=== PATIENT | female | born 1940 | race African-American/Black ===

== ENCOUNTER 2017-04-29 18:13 | Inpatient (IN) | payer OTHER ==
[~2017-04-29] VITALS: Ht 160 cm; Wt 67.9 kg
[2017-04-29] MEDS ORDERED: PLEASE ENTER ALLERGIES MC SCH ×2 (18:30)
[2017-04-29] MEDS ORDERED: SODIUM CHLORIDE FLUSH 10ML SYR IVF ONE (18:30)
[2017-04-29] MEDS ORDERED: OMEP10CA4 PO (18:34)
[2017-04-29] MEDS ORDERED: PROB500T22 PO (18:34)
[2017-04-29] MEDS ORDERED: AMLO10TA2 PO (18:34)
[2017-04-29] MEDS ORDERED: LEVO25TA4 PO (18:34)
[2017-04-29] MEDS ORDERED: LISI2.5T PO (18:34)
[2017-04-29] MEDS ORDERED: SIMV5TAB5 PO (18:34)
[2017-04-29] MEDS ORDERED: PRED-402 PO (18:34)
[2017-04-29] MEDS ORDERED: GABA300C10 PO (18:34)
[2017-04-29 18:50] LABS: ASPARTATE AMINO TRANSFERASE 23 U/L (15-37); BLOOD UREA NITROGEN 24 mg/dL (7-18)
[2017-04-29 18:55] LABS: IS PT STATUS REG ER OR PRE ER? YES
[2017-04-29] MEDS ORDERED: NITROGLYCERIN 0.4 MG/SPRAY SL PRN (20:30)
[2017-04-29] MEDS ORDERED: ACETAMINOPHEN 325 MG TABLET PO PRN (20:30)
[2017-04-29] MEDS ORDERED: ONDANSETRON 2MG/ML, 2ML IVPush PRN (20:30)
[2017-04-29] MEDS ORDERED: hydrALAzine 20 MG/ML, 1ML IVPush PRN (20:30)
[2017-04-29] MEDS ORDERED: ONDANSETRON ODT 4 MG PO PRN (20:30)
[2017-04-29] MEDS ORDERED: NITROGLYCERIN 0.4 MG BOTTLE (25 TABS) SL PRN ×2 (20:30)
[2017-04-29] MEDS ORDERED: LABETALOL 5MG/ML, 20ML IVPush PRN (20:30)
[2017-04-29] MEDS ORDERED: LORazepam 1MG TABLET PO PRN (20:30)
[2017-04-29] MEDS ORDERED: MAALOX/HYOSCYAMINE/LIDOCAINE 45 ML BOTTLE PO ONE (22:00)
[2017-04-29] MEDS: D5%-0.45NACL+KCL 20MEQ 1,000 ML IV SCH (23:44)
[2017-04-29] MEDS: HEPARIN 5,000 UNITS/ML, 1ML SQ SCH (23:45)
[2017-04-29 23:46] VITALS: BP 143/79
[2017-04-30 02:07] LABS: IS PT STATUS REG ER OR PRE ER? NO
[2017-04-30 02:11] VITALS: BP 132/64
[2017-04-30] MEDS ORDERED: LEVOTHYROXINE 100 MCG TABLET PO SCH (06:00)
[2017-04-30 06:44] LABS: ASPARTATE AMINO TRANSFERASE 20 U/L (15-37); BLOOD UREA NITROGEN 21 mg/dL (7-18)
[2017-04-30 06:48] LABS: IS PT STATUS REG ER OR PRE ER? NO
[2017-04-30 07:24] VITALS: BP 146/82
[2017-04-30] MEDS ORDERED: OMEPRAZOLE 20 MG CAPSULE.DR PO SCH (07:30)
[2017-04-30 08:30] LABS: DIFF TOTAL CELLS COUNTED 100 CELL DIFF
[2017-04-30 08:33] LABS: VERIFY COUNTS? YES
[2017-04-30] MEDS ORDERED: REGADENOSON 0.4 MG/5 ML SYRINGE ONE (08:55)
[2017-04-30] MEDS ORDERED: SENNA/DOCUSATE TABLET PO SCH (09:00)
[2017-04-30] MEDS ORDERED: BRIMONIDINE TARTRATE OPHTH 0.15%, 5ML LEFTEYE SCH (09:00)
[2017-04-30] MEDS ORDERED: TIMOLOL OPHTH 0.5%, 5ML LEFTEYE SCH (09:00)
[2017-04-30] MEDS ORDERED: AMLODIPINE 2.5 MG TABLET PO SCH (09:00)
[2017-04-30] MEDS ORDERED: AMLODIPINE 5 MG TABLET PO SCH (09:00)
[2017-04-30] MEDS ORDERED: FAMOTIDINE 20 MG TABLET PO SCH (09:00)
[2017-04-30] MEDS: HEPARIN 5,000 UNITS/ML, 1ML SQ SCH (09:07)
[2017-04-30] MEDS: D5%-0.45NACL+KCL 20MEQ 1,000 ML IV SCH (12:25)
[2017-04-30 14:50] VITALS: BP 131/70
[2017-04-30] MEDS ORDERED: BRIMONIDINE TARTRATE OPHTH 0.15%, 5ML EACHEYE SCH (21:00)
[2017-04-30] MEDS ORDERED: GABAPENTIN 300 MG CAPSULE PO SCH (21:00)
[2017-04-30] MEDS ORDERED: TIMOLOL OPHTH 0.5%, 5ML EACHEYE SCH (21:00)
[2017-04-30] MEDS ORDERED: SIMVASTATIN 40 MG TABLET PO SCH (21:00)
[2017-04-30] MEDS ORDERED: LATANOPROST OPHTH 0.005%, 2.5ML EACHEYE SCH (21:00)
== END 2017-04-30 16:58 | disposition home or self-care (01) | DRG 305 ==
LOC: ED 19:25 → INTOOBSV 20:09 → EDIP 20:09 → 5SO 20:11 → OBSVTOIN 04-30 11:30
PROVIDERS: ADMIT Family Medicine; ATTEND Family Medicine
DX: I10 Essential (primary) hypertension (principal); N17.9 Acute kidney failure, unspecified; R07.89 Other chest pain; E78.5 Hyperlipidemia, unspecified; D64.9 Anemia, unspecified; E03.9 Hypothyroidism, unspecified; F41.9 Anxiety disorder, unspecified; H40.9 Unspecified glaucoma; I70.0 Atherosclerosis of aorta; Z66 Do not resuscitate; K21.9 Gastro-esophageal reflux disease without esophagitis; K44.9 Diaphragmatic hernia without obstruction or gangrene; M35.3 Polymyalgia rheumatica; G89.29 Other chronic pain; M54.5 Low back pain; Z88.6 Allergy status to analgesic agent; Z88.8 Allergy status to other drugs, medicaments and biological substances; Z86.73 Personal history of transient ischemic attack (TIA), and cerebral infarction without residual deficits; Z91.018 Allergy to other foods; Z90.710 Acquired absence of both cervix and uterus; Z90.49 Acquired absence of other specified parts of digestive tract; Z79.899 Other long term (current) drug therapy; Z87.891 Personal history of nicotine dependence
CPT/HCPCS: 36415; 71010; 78452; 80053; 80061; 83036; 83880; 84443; 84484; 85025; 85045; 85610; 85730; 93005; 93017; 93306; 96372; G0378; J1644; J2785; A9502; C9898; J3480

== ENCOUNTER 2017-12-24 21:10 | Emergency (ER) | payer OTHER ==
[~2017-12-24] VITALS: Ht 160 cm; Wt 63.5 kg
[~2017-12-24 21:10] MED LIST: AMLO10TA2 PO; GABA300C10 PO; LEVO25TA4 PO; LISI2.5T PO; OMEP10CA4 PO; PRED-402 PO; PROB500T22 PO; SIMV5TAB5 PO
[2017-12-24 21:45] LABS: BASOPHILS # (AUTO) 0.04 x10^3/uL (0-0.1); BASOPHILS % (AUTO) 1 % (0-1); EOSINOPHILS # (AUTO) 0.18 x10^3/uL (0-0.4); EOSINOPHILS % (AUTO) 3 % (1-7); LYMPHOCYTES # (AUTO) 2.16 x10^3/uL (1-3.4); LYMPHOCYTES % (AUTO) 29 % (22-44); MD NO; MEAN CORPUSCULAR HEMOGLOBIN 30.5 pg (27.0-34.8); MEAN CORPUSCULAR HGB CONC 33.4 g/dL (32.4-35.8); MEAN CORPUSCULAR VOLUME 91.5 fL (80-100); MEAN PLATELET VOLUME 7.7 fL (7.4-10.4); MONOCYTES # (AUTO) 0.54 x10^3/uL (0.2-0.8); MONOCYTES % (AUTO) 7 % (2-9); NEUTROPHILS # (AUTO) 4.47 x10^3/uL (1.8-6.8); NEUTROPHILS % (AUTO) 61 % (42-75); PLATELET COUNT 215 x10^3/uL (130-400); RED BLOOD COUNT 3.97 x10^6/uL (3.82-5.3); RED CELL DISTRIBUTION WIDTH 16.8 % (9.6-15.2)
[2017-12-24 21:49] LABS: CULTURE INDICATED? YES; MICROSCOPIC INDICATED
[2017-12-24 21:57] LABS: ALANINE AMINOTRANSFERASE 20 U/L (12-78); ALBUMIN 3.5 g/dL (3.4-5.0); ANION GAP 8 mmol/L (5-15); CALCIUM 8.8 mg/dL (8.5-10.1); CHLORIDE 110 mmol/L (98-107); CREATININE 1.16 mg/dL (0.55-1.02)
[2017-12-24 21:59] LABS: ALKALINE PHOSPHATASE 65 U/L (45-117); BILIRUBIN,TOTAL 0.5 mg/dL (0.2-1.0); TOTAL PROTEIN 7.1 g/dL (6.4-8.2)
[2017-12-24] MEDS ORDERED: CEFTRIAXONE PMX 1GM/50ML 50 ML ONE (22:43)
[2017-12-24] MEDS ORDERED: CEFTRIAXONE PMX 1GM/50ML 50 ML IV ONE (23:00)
[2017-12-24 23:27] VITALS: BP 176/78
== END 2017-12-24 23:45 | disposition home or self-care (01) ==
LOC: ED 23:32
DX: N30.91 Cystitis, unspecified with hematuria (principal); I10 Essential (primary) hypertension; E78.5 Hyperlipidemia, unspecified
CPT/HCPCS: 36415; 80053; 81001; 85025; 87077; 87086; 87186; 96365; 99284; J0696

== ENCOUNTER 2018-02-12 13:18 | Inpatient (IN) | payer OTHER ==
[~2018-02-12] VITALS: Ht 160 cm; Wt 65.3 kg
[2018-02-12] MEDS ORDERED: SODIUM CHLORIDE FLUSH 10ML SYR IVF ONE (13:30)
[2018-02-12] MEDS ORDERED: LABETALOL 5MG/ML, 20ML IVPush ONE (13:30)
[2018-02-12] MEDS ORDERED: PLEASE ENTER HEIGHT AND WEIGHT MC SCH ×2 (13:30→14:00)
[2018-02-12 13:52] LABS: BASOPHILS # (AUTO) 0.03 x10^3/uL (0-0.1); BASOPHILS % (AUTO) 1 % (0-1); EOSINOPHILS # (AUTO) 0.04 x10^3/uL (0-0.4); EOSINOPHILS % (AUTO) 1 % (1-7); HCT (SEDRATE) 36.5 % (34.6-47.8); LYMPHOCYTES # (AUTO) 2.39 x10^3/uL (1-3.4); LYMPHOCYTES % (AUTO) 49 % (22-44); MD NO; MEAN CORPUSCULAR HEMOGLOBIN 30.1 pg (27.0-34.8); MEAN CORPUSCULAR HGB CONC 32.8 g/dL (32.4-35.8); MEAN PLATELET VOLUME 8.3 fL (7.4-10.4); MONOCYTES # (AUTO) 0.29 x10^3/uL (0.2-0.8); MONOCYTES % (AUTO) 6 % (2-9); NEUTROPHILS # (AUTO) 2.17 x10^3/uL (1.8-6.8); NEUTROPHILS % (AUTO) 44 % (42-75); PLATELET COUNT 244 x10^3/uL (130-400); RED BLOOD COUNT 3.97 x10^6/uL (3.82-5.3); RED CELL DISTRIBUTION WIDTH 16.5 % (9.6-15.2)
[2018-02-12 14:03] LABS: ALBUMIN 3.9 g/dL (3.4-5.0); ANION GAP 8 mmol/L (5-15); CHLORIDE 113 mmol/L (98-107)
[2018-02-12 14:04] LABS: CREATININE 1.07 mg/dL (0.55-1.02)
[2018-02-12 14:07] LABS: INTERNATIONAL NORMALIZED RATIO 1.04 (0.93-1.1); PROTHROMBIN TIME 10.7 Seconds (9.6-11.5)
[2018-02-12] MEDS ORDERED: LABETALOL 5MG/ML, 20ML ONE (14:13)
[2018-02-12 14:27] LABS: SEDIMENTATION RATE 30 mm/hr (0-20)
[2018-02-12] MEDS ORDERED: ENALAPRILAT 1.25 MG/ML, 2ML IV PRN (16:30)
[2018-02-12] MEDS ORDERED: POLYETHYLENE GLYCOL 17 GM PACKET PO PRN (16:30)
[2018-02-12] MEDS ORDERED: INSTRUCTION SEE COMMENTS XX ONE (16:30)
[2018-02-12] MEDS ORDERED: LABETALOL 5MG/ML, 20ML IV PRN ×2 (16:30→17:00)
[2018-02-12] MEDS ORDERED: ONDANSETRON 2MG/ML, 2ML IVPush PRN (16:30)
[2018-02-12] MEDS ORDERED: ACETAMINOPHEN 650 MG/20.3 ML UDC PO PRN (16:30)
[2018-02-12] MEDS ORDERED: ACETAMINOPHEN 500 MG TABLET ONE (16:45)
[2018-02-12] MEDS ORDERED: LISINOPRIL 20 MG TABLET PO ONE (17:00)
[2018-02-12] MEDS ORDERED: ACETAMINOPHEN 325 MG TABLET PO ONE (17:00)
[2018-02-12] MEDS ORDERED: ACETAMINOPHEN 500 MG TABLET PO ONE (17:00)
[2018-02-12] MEDS: POTASSIUM CHLORIDE 20 MEQ TAB.ER.PRT PO ONE ×2 (18:00→18:31)
[2018-02-12] MEDS ORDERED: ENALAPRIL 10 MG TABLET PO PRN (20:00)
[2018-02-12] MEDS ORDERED: ENALAPRIL 2.5MG TABLET ONE (20:05)
[2018-02-12] MEDS ORDERED: SIMVASTATIN 40 MG TABLET ONE (20:29)
[2018-02-12] MEDS: SIMVASTATIN 5 MG TABLET PO SCH (20:33)
[2018-02-12] MEDS ORDERED: SIMVASTATIN 5 MG TABLET PO SCH (21:00)
[2018-02-12] MEDS ORDERED: hydrALAzine 20 MG/ML, 1ML IVPush PRN (21:30)
[2018-02-12] MEDS: ENALAPRILAT 1.25 MG/ML, 2ML IVPush PRN ×2 (22:30→22:52)
[2018-02-13 04:00] VITALS: BP 133/54
[2018-02-13 04:52] LABS: ANION GAP 5 mmol/L (5-15); CALCIUM 8.6 mg/dL (8.5-10.1); CHLORIDE 113 mmol/L (98-107); CREATININE 0.88 mg/dL (0.55-1.02)
[2018-02-13 04:54] LABS: CHOL/HDL RATIO 2.9; CHOLESTEROL, TOTAL 126 mg/dL (140-239); HDL CHOL % 34 % (28-40); HDL CHOLESTEROL (DIRECT) 43 mg/dL (40-60); LDL CHOLESTEROL,CALCULATED 66 mg/dL (54-169); LDL/HDL RATIO 1.5 (0.5-3.0); TRIGLYCERIDES 86 mg/dL (50-200); VLDL CHOLESTEROL 17 mg/dL (0-25)
[2018-02-13] MEDS ORDERED: ACETAMINOPHEN 325 MG TABLET PO PRN (08:00)
[2018-02-13] MEDS ORDERED: GADOBUTROL 7.5 MMOL/7.5 ML PFS ONE (09:46)
[2018-02-13] MEDS: GABAPENTIN 300 MG CAPSULE PO SCH (12:04)
[2018-02-13] MEDS: LEVOTHYROXINE 25 MCG TABLET PO SCH (12:05)
[2018-02-13] MEDS: OMEPRAZOLE 10 MG CAPSULE.DR PO SCH (12:05)
[2018-02-13] MEDS: PROBENECID 500 MG TABLET PO SCH (13:39)
[2018-02-13] MEDS: POTASSIUM CHLORIDE 20 MEQ TAB.ER.PRT PO SCH (13:39)
[2018-02-13 15:40] VITALS: BP 161/84
[2018-02-13] MEDS ORDERED: ALEN70TA5 PO (18:13)
[2018-02-13] MEDS: SIMVASTATIN 5 MG TABLET PO SCH (20:14)
[2018-02-13 20:52] VITALS: BP 150/70
[2018-02-14 01:56] VITALS: BP 128/85
[2018-02-14 07:40] LABS: BASOPHILS # (AUTO) 0.04 x10^3/uL (0-0.1); BASOPHILS % (AUTO) 1 % (0-1); EOSINOPHILS # (AUTO) 0.16 x10^3/uL (0-0.4); EOSINOPHILS % (AUTO) 4 % (1-7); LYMPHOCYTES # (AUTO) 2.01 x10^3/uL (1-3.4); LYMPHOCYTES % (AUTO) 48 % (22-44); MD NO; MEAN CORPUSCULAR HEMOGLOBIN 29.7 pg (27.0-34.8); MEAN CORPUSCULAR HGB CONC 32.7 g/dL (32.4-35.8); MEAN CORPUSCULAR VOLUME 90.7 fL (80-100); MEAN PLATELET VOLUME 8.3 fL (7.4-10.4); MONOCYTES % (AUTO) 7 % (2-9); NEUTROPHILS # (AUTO) 1.67 x10^3/uL (1.8-6.8); NEUTROPHILS % (AUTO) 40 % (42-75); PLATELET COUNT 227 x10^3/uL (130-400); RED BLOOD COUNT 4.13 x10^6/uL (3.82-5.3); RED CELL DISTRIBUTION WIDTH 16.3 % (9.6-15.2)
[2018-02-14 07:53] LABS: ALBUMIN 3.3 g/dL (3.4-5.0); ANION GAP 8 mmol/L (5-15); CALCIUM 8.5 mg/dL (8.5-10.1); CHLORIDE 111 mmol/L (98-107)
[2018-02-14 07:56] LABS: FREE T4 (FREE THYROXINE) 0.64 ng/dL (0.76-1.46)
[2018-02-14 08:14] VITALS: BP 166/78
[2018-02-14 08:44] VITALS: BP 133/69
[2018-02-14] MEDS ORDERED: AMLODIPINE 2.5 MG TABLET PO SCH (09:00)
[2018-02-14] MEDS: LEVOTHYROXINE 25 MCG TABLET PO SCH (09:28)
[2018-02-14] MEDS: POTASSIUM CHLORIDE 20 MEQ TAB.ER.PRT PO SCH (09:28)
[2018-02-14] MEDS: OMEPRAZOLE 10 MG CAPSULE.DR PO SCH (09:28)
[2018-02-14] MEDS: GABAPENTIN 300 MG CAPSULE PO SCH (09:29)
[2018-02-14] MEDS: PROBENECID 500 MG TABLET PO SCH (09:33)
[2018-02-14] MEDS ORDERED: SIMV40TA3 PO (12:06)
[2018-02-14] MEDS ORDERED: LEVO50TA PO (12:06)
[2018-02-14] MEDS ORDERED: AMLO5TAB2 PO (15:12)
[2018-02-15] MEDS ORDERED: LEVOTHYROXINE 50 MCG TABLET PO SCH (09:00)
== END 2018-02-14 15:50 | disposition home or self-care (01) | DRG 545 ==
LOC: ED 14:58 → EDIP 16:08 → CCU 17:50 → 4EST 02-13 16:00 → DCLOUNGE 02-14 15:20
PROVIDERS: ADMIT Hospitalist; ATTEND Hospitalist
DX: E85.4 Organ-limited amyloidosis (principal); I61.8 Other nontraumatic intracerebral hemorrhage; I68.0 Cerebral amyloid angiopathy; I10 Essential (primary) hypertension; H40.9 Unspecified glaucoma; E87.6 Hypokalemia; E78.5 Hyperlipidemia, unspecified; E03.9 Hypothyroidism, unspecified; H54.62 Unqualified visual loss, left eye, normal vision right eye; R13.10 Dysphagia, unspecified; H53.40 Unspecified visual field defects; K21.9 Gastro-esophageal reflux disease without esophagitis; M10.9 Gout, unspecified; Z79.899 Other long term (current) drug therapy; Z83.511 Family history of glaucoma; Z87.891 Personal history of nicotine dependence; Z90.710 Acquired absence of both cervix and uterus; Z88.5 Allergy status to narcotic agent; Z91.018 Allergy to other foods
CPT/HCPCS: 36415; 70450; 70553; 80048; 80061; 82040; 84439; 84443; 85025; 85610; 85651; 87081; 93005; 96374; A9585; J0360

== ENCOUNTER 2018-02-22 19:03 | Emergency (ER) | payer OTHER ==
[~2018-02-22] VITALS: Ht 160 cm; Wt 60.6 kg
[~2018-02-22 19:03] MED LIST changes: +ALEN70TA5 PO; +AMLO5TAB2 PO; +LEVO50TA PO; +SIMV40TA3 PO
[2018-02-22 19:50] LABS: BASOPHILS # (AUTO) 0.02 x10^3/uL (0-0.1); BASOPHILS % (AUTO) 0 % (0-1); EOSINOPHILS # (AUTO) 0.04 x10^3/uL (0-0.4); EOSINOPHILS % (AUTO) 1 % (1-7); LYMPHOCYTES # (AUTO) 2.82 x10^3/uL (1-3.4); LYMPHOCYTES % (AUTO) 39 % (22-44); MD NO; MEAN CORPUSCULAR HEMOGLOBIN 30.2 pg (27.0-34.8); MEAN CORPUSCULAR HGB CONC 33.2 g/dL (32.4-35.8); MEAN CORPUSCULAR VOLUME 91.1 fL (80-100); MEAN PLATELET VOLUME 8.3 fL (7.4-10.4); MONOCYTES # (AUTO) 0.26 x10^3/uL (0.2-0.8); MONOCYTES % (AUTO) 4 % (2-9); NEUTROPHILS # (AUTO) 4.16 x10^3/uL (1.8-6.8); NEUTROPHILS % (AUTO) 57 % (42-75); PLATELET COUNT 248 x10^3/uL (130-400); RED BLOOD COUNT 4.11 x10^6/uL (3.82-5.3); RED CELL DISTRIBUTION WIDTH 16.3 % (9.6-15.2)
[2018-02-22 19:58] LABS: INTERNATIONAL NORMALIZED RATIO 0.99 (0.93-1.1); PROTHROMBIN TIME 10.3 Seconds (9.6-11.5)
[2018-02-22 20:01] LABS: ALANINE AMINOTRANSFERASE 29 U/L (12-78); ALBUMIN 3.9 g/dL (3.4-5.0); ANION GAP 9 mmol/L (5-15); CALCIUM 9.4 mg/dL (8.5-10.1); CHLORIDE 108 mmol/L (98-107); CREATININE 1.11 mg/dL (0.55-1.02)
[2018-02-22 20:03] LABS: ALKALINE PHOSPHATASE 50 U/L (45-117); BILIRUBIN,TOTAL 0.4 mg/dL (0.2-1.0); TOTAL PROTEIN 7.6 g/dL (6.4-8.2)
[2018-02-22 20:34] VITALS: BP 151/58
== END 2018-02-22 20:37 | disposition home or self-care (01) ==
LOC: ED 20:30
DX: G43.C0 Periodic headache syndromes in child or adult, not intractable (principal); E78.5 Hyperlipidemia, unspecified; I10 Essential (primary) hypertension; K21.9 Gastro-esophageal reflux disease without esophagitis; M10.9 Gout, unspecified; R79.1 Abnormal coagulation profile
CPT/HCPCS: 36415; 70450; 80053; 85025; 85610; 85730; 93005; 99285

== ENCOUNTER 2019-04-06 07:30 | Inpatient (IN) | payer MEDICARE, OTHER ==
[~2019-04-06] VITALS: Ht 160 cm; Wt 55.8 kg
[~2019-04-06 07:30] MED LIST changes: -ALEN70TA5 PO; +ALEN70TA6 PO; +AMLO-150 PO; -AMLO10TA2 PO; +AMLO10TA8 PO; -AMLO5TAB2 PO; +SIMV5TAB14 PO; -SIMV5TAB5 PO
--- NOTE | 2019-04-06 07:39 | NUR ---
PATIENT BIB [facility] FOR LOWER ABD PAIN, PAINFUL URINATION, AND VAG BLEEDING. DENIES N/V/D. NADN, AWAITING ORDERS. PA AT BEDSIDE.
--- NOTE | 2019-04-06 07:46 | NUR ---
PATIENT AMB WITH STEADY GAIT TO BATHROOM, UA ATTEMPTED, UNABLE TO URINATE AT THIS TIME.
--- NOTE | 2019-04-06 08:56 | NUR ---
STRAIGHT CATH COMPLETED, URINE WALKED TO LAB. Addendum: 04/06/19 at 0857 by CRYSTAL VISIBLE HEMATURIA.
[2019-04-06 09:26] LABS: MICROSCOPIC INDICATED
[2019-04-06 09:27] LABS: CULTURE INDICATED? YES
--- NOTE | 2019-04-06 09:44 | NUR ---
NEW ORDERS, AWAITING CT. PATIENT RESTING IN KARLEE PANCHAL. RESP EVEN/UNLABORED.
[2019-04-06 10:05] LABS: BASOPHILS # (AUTO) 0.02 x10^3/uL (0-0.1); BASOPHILS % (AUTO) 1 % (0-1); EOSINOPHILS # (AUTO) 0.03 x10^3/uL (0-0.4); EOSINOPHILS % (AUTO) 1 % (1-7); LYMPHOCYTES # (AUTO) 1.71 x10^3/uL (1-3.4); LYMPHOCYTES % (AUTO) 35 % (22-44); MD NO; MEAN CORPUSCULAR HEMOGLOBIN 29.5 pg (27.0-34.8); MEAN CORPUSCULAR HGB CONC 31.6 g/dL (32.4-35.8); MEAN CORPUSCULAR VOLUME 93.4 fL (80-100); MEAN PLATELET VOLUME 7.8 fL (7.4-10.4); MONOCYTES # (AUTO) 0.25 x10^3/uL (0.2-0.8); MONOCYTES % (AUTO) 5 % (2-9); NEUTROPHILS # (AUTO) 2.88 x10^3/uL (1.8-6.8); NEUTROPHILS % (AUTO) 59 % (42-75); PLATELET COUNT 293 x10^3/uL (130-400); RED BLOOD COUNT 3.69 x10^6/uL (3.82-5.3); RED CELL DISTRIBUTION WIDTH 16.7 % (9.6-15.2)
[2019-04-06 10:10] LABS: ALBUMIN 3.4 g/dL (3.4-5.0); ANION GAP 6 mmol/L (5-15); CALCIUM 8.8 mg/dL (8.5-10.1); CHLORIDE 110 mmol/L (98-107)
--- NOTE | 2019-04-06 10:14 | NUR ---
PATIENT BACK FROM CT, AMB WITH STEADY GAIT TO BATHROOM. BACK TO BED NADN.
[2019-04-06 10:16] LABS: ALANINE AMINOTRANSFERASE 15 U/L (12-78); ALKALINE PHOSPHATASE 53 U/L (45-117); BILIRUBIN,TOTAL 0.5 mg/dL (0.2-1.0); CREATININE 1.18 mg/dL (0.55-1.02); TOTAL PROTEIN 7.4 g/dL (6.4-8.2)
--- NOTE | 2019-04-06 10:46 | NUR ---
RESULTS BACK, CHART UP FOR RECHECK.
[2019-04-06] MEDS ORDERED: CEFTRIAXONE PMX 1GM/50ML 50 ML IV ONE (11:00)
--- NOTE | 2019-04-06 11:15 | NUR ---
NEW ORDERS, PATIENT ON PELVIC BED, MD AWARE. AWAITING PELVIC EXAM.
[2019-04-06] MEDS ORDERED: CEFTRIAXONE PMX 1GM/50ML 50 ML ONE (11:23)
--- NOTE | 2019-04-06 11:29 | NUR ---
NEW ORDERS FOR ABX, NO CULTURES NEEDED PER ERP. PA AT BEDSIDE FOR PELVIC EXAM.
--- NOTE | 2019-04-06 12:44 | NUR ---
Provided report to floor RN for room 344. All questions answered. Patient ready to transfer to floor from ED.
--- NOTE | 2019-04-06 13:14 | NUR ---
UNR AT BEDSIDE, VS UPDATED IN CHART. PATIENT SITTING IN GURNEY EATING SANDWICH PROVIDED. NADN. AWAITING TRANSPORT AFTER.
--- NOTE | 2019-04-06 13:30 | NUR ---
PATIENT TRANSFERRED/ADMITTED TO HOSPITAL BED UPSTAIRS.
[2019-04-06 13:39] VITALS: BP 137/75
[2019-04-06] MEDS ORDERED: POLYETHYLENE GLYCOL 17 GM PACKET PO PRN (14:00)
[2019-04-06] MEDS ORDERED: ACETAMINOPHEN 325 MG TABLET PO PRN (14:00)
[2019-04-06] MEDS ORDERED: LABETALOL 5MG/ML, 20ML IVPush PRN (14:00)
[2019-04-06] MEDS ORDERED: BISACODYL 10 MG SUPP PR PRN (14:00)
[2019-04-06] MEDS ORDERED: ONDANSETRON 2MG/ML, 2ML IVPush PRN (14:00)
[2019-04-06 14:30] VITALS: BP 143/79
[2019-04-06] MEDS ORDERED: PHENAZOPYRIDINE 200 MG TABLET PO PRN (14:30)
[2019-04-06 15:21] VITALS: BP 143/79
[2019-04-06] MEDS: SODIUM CHLORIDE 0.9% 1,000 ML IV SCH (15:48)
[2019-04-06] MEDS: SIMVASTATIN 40 MG TABLET PO SCH (20:02)
[2019-04-06] MEDS: SULFAMETH./TRIMETHOPRIM DS 800MG/160MG TABLET PO SCH (20:02)
[2019-04-06 20:03] VITALS: BP 139/64
[2019-04-07 02:50] VITALS: BP 126/68
[2019-04-07] MEDS: SODIUM CHLORIDE 0.9% 1,000 ML IV SCH ×2 (04:02→16:13)
[2019-04-07 05:31] LABS: BASOPHILS # (AUTO) 0.04 x10^3/uL (0-0.1); BASOPHILS % (AUTO) 1 % (0-1); EOSINOPHILS # (AUTO) 0.06 x10^3/uL (0-0.4); EOSINOPHILS % (AUTO) 2 % (1-7); LYMPHOCYTES # (AUTO) 1.99 x10^3/uL (1-3.4); LYMPHOCYTES % (AUTO) 49 % (22-44); MD NO; MEAN CORPUSCULAR HEMOGLOBIN 29.7 pg (27.0-34.8); MEAN CORPUSCULAR HGB CONC 31.9 g/dL (32.4-35.8); MEAN CORPUSCULAR VOLUME 93.1 fL (80-100); MEAN PLATELET VOLUME 7.5 fL (7.4-10.4); MONOCYTES # (AUTO) 0.28 x10^3/uL (0.2-0.8); MONOCYTES % (AUTO) 7 % (2-9); NEUTROPHILS # (AUTO) 1.74 x10^3/uL (1.8-6.8); NEUTROPHILS % (AUTO) 42 % (42-75); PLATELET COUNT 283 x10^3/uL (130-400); RED BLOOD COUNT 3.27 x10^6/uL (3.82-5.3); RED CELL DISTRIBUTION WIDTH 16.5 % (9.6-15.2)
[2019-04-07 05:43] LABS: ANION GAP 8 mmol/L (5-15); CALCIUM 8.1 mg/dL (8.5-10.1); CHLORIDE 113 mmol/L (98-107); CREATININE 1.26 mg/dL (0.55-1.02)
[2019-04-07 08:12] VITALS: BP 115/63
[2019-04-07] MEDS: OMEPRAZOLE 20 MG CAPSULE.DR PO SCH (09:55)
[2019-04-07] MEDS: GABAPENTIN 300 MG CAPSULE PO SCH (09:55)
[2019-04-07] MEDS: AMLODIPINE 5 MG TABLET PO SCH (09:55)
[2019-04-07] MEDS: LISINOPRIL 5 MG TABLET PO SCH (09:56)
[2019-04-07] MEDS: SULFAMETH./TRIMETHOPRIM DS 800MG/160MG TABLET PO SCH ×2 (09:56→21:25)
[2019-04-07] MEDS: LEVOTHYROXINE 50 MCG TABLET PO SCH (09:59)
[2019-04-07 12:20] VITALS: BP 112/64
[2019-04-07 20:27] VITALS: BP 109/72
[2019-04-07] MEDS: SIMVASTATIN 40 MG TABLET PO SCH (21:25)
[2019-04-08 02:33] VITALS: BP 132/73
[2019-04-08 04:49] LABS: BASOPHILS # (AUTO) 0.05 x10^3/uL (0-0.1); BASOPHILS % (AUTO) 1 % (0-1); EOSINOPHILS # (AUTO) 0.09 x10^3/uL (0-0.4); EOSINOPHILS % (AUTO) 2 % (1-7); LYMPHOCYTES % (AUTO) 35 % (22-44); MD NO; MEAN CORPUSCULAR HEMOGLOBIN 31.1 pg (27.0-34.8); MEAN CORPUSCULAR HGB CONC 32.9 g/dL (32.4-35.8); MEAN CORPUSCULAR VOLUME 94.4 fL (80-100); MEAN PLATELET VOLUME 7.4 fL (7.4-10.4); MONOCYTES # (AUTO) 0.47 x10^3/uL (0.2-0.8); MONOCYTES % (AUTO) 8 % (2-9); NEUTROPHILS # (AUTO) 3.21 x10^3/uL (1.8-6.8); NEUTROPHILS % (AUTO) 54 % (42-75); PLATELET COUNT 292 x10^3/uL (130-400); RED BLOOD COUNT 3.18 x10^6/uL (3.82-5.3); RED CELL DISTRIBUTION WIDTH 16.7 % (9.6-15.2)
[2019-04-08 05:02] LABS: CHLORIDE 116 mmol/L (98-107)
[2019-04-08 05:06] LABS: ANION GAP 7 mmol/L (5-15); CREATININE 1.12 mg/dL (0.55-1.02)
[2019-04-08] MEDS: LEVOTHYROXINE 50 MCG TABLET PO SCH (06:06)
[2019-04-08] MEDS: SODIUM CHLORIDE 0.9% 1,000 ML IV SCH (06:06)
[2019-04-08 07:50] VITALS: BP 129/71
[2019-04-08] MEDS: OMEPRAZOLE 20 MG CAPSULE.DR PO SCH (08:30)
[2019-04-08] MEDS: AMLODIPINE 5 MG TABLET PO SCH (08:30)
[2019-04-08] MEDS: GABAPENTIN 300 MG CAPSULE PO SCH (08:30)
[2019-04-08] MEDS: SULFAMETH./TRIMETHOPRIM DS 800MG/160MG TABLET PO SCH (08:30)
[2019-04-08] MEDS: LISINOPRIL 5 MG TABLET PO SCH (08:31)
[2019-04-08 08:35] VITALS: BP 136/79
[2019-04-08 15:26] VITALS: BP 123/70
[2019-04-08] MEDS ORDERED: CEFU500T50 PO (16:15)
[2019-04-08] MEDS ORDERED: NITROFURANTOIN (MACROBID) 100 MG CAPSULE PO SCH (21:00)
[2019-04-09] MEDS ORDERED: ALENDRONATE 70 MG TABLET PO SCH (06:30)
== END 2019-04-08 18:27 | disposition home or self-care (01) | DRG 682 ==
LOC: ED 08:22 → INTOOBSV 11:57 → EDIP 11:57 → 3NW 13:30 → OBSVTOIN 14:06
PROVIDERS: ADMIT Internal Medicine; ATTEND Internal Medicine
PROC: 0T9B70Z Drainage of Bladder with Drainage Device, Via Natural or Artificial Opening (ICD-10-PCS; principal; 2019-04-06)
DX: N17.9 Acute kidney failure, unspecified (principal); G93.41 Metabolic encephalopathy; N39.0 Urinary tract infection, site not specified; Z88.6 Allergy status to analgesic agent; Z88.5 Allergy status to narcotic agent; Z91.018 Allergy to other foods; D64.9 Anemia, unspecified; E03.9 Hypothyroidism, unspecified; E78.5 Hyperlipidemia, unspecified; E86.0 Dehydration; I10 Essential (primary) hypertension; K21.9 Gastro-esophageal reflux disease without esophagitis; M10.9 Gout, unspecified; Z83.511 Family history of glaucoma; Z86.73 Personal history of transient ischemic attack (TIA), and cerebral infarction without residual deficits; Z87.891 Personal history of nicotine dependence; Z90.710 Acquired absence of both cervix and uterus
CPT/HCPCS: 36415; 74176; 80048; 80053; 81001; 85025; 87077; 87086; 87186; 96365; G0378; J0696; J7030

== ENCOUNTER 2019-05-12 16:08 | Emergency (ER) | payer MEDICARE ==
[~2019-05-12] VITALS: Ht 160 cm; Wt 52.6 kg
[~2019-05-12 16:08] MED LIST changes: +CEFU500T50 PO
--- NOTE | 2019-05-12 16:41 | NUR ---
pt to room from lobby, ambulated to room indep/steadily, changed into gown, responds approp to staff, NAD, comfort measures provided, call light within reach.
[2019-05-12] MEDS ORDERED: PHENAZOPYRIDINE 200 MG TABLET PO ONE (17:00)
[2019-05-12 17:01] LABS: BASOPHILS # (AUTO) 0.03 x10^3/uL (0-0.1); BASOPHILS % (AUTO) 1 % (0-1); EOSINOPHILS # (AUTO) 0.05 x10^3/uL (0-0.4); EOSINOPHILS % (AUTO) 1 % (1-7); LYMPHOCYTES # (AUTO) 2.02 x10^3/uL (1-3.4); LYMPHOCYTES % (AUTO) 51 % (22-44); MD NO; MEAN CORPUSCULAR HEMOGLOBIN 29.8 pg (27.0-34.8); MEAN CORPUSCULAR HGB CONC 31.7 g/dL (32.4-35.8); MEAN CORPUSCULAR VOLUME 93.9 fL (80-100); MEAN PLATELET VOLUME 7.6 fL (7.4-10.4); MONOCYTES # (AUTO) 0.28 x10^3/uL (0.2-0.8); MONOCYTES % (AUTO) 7 % (2-9); NEUTROPHILS # (AUTO) 1.56 x10^3/uL (1.8-6.8); NEUTROPHILS % (AUTO) 40 % (42-75); PLATELET COUNT 223 x10^3/uL (130-400); RED BLOOD COUNT 3.94 x10^6/uL (3.82-5.3); RED CELL DISTRIBUTION WIDTH 16.5 % (9.6-15.2)
[2019-05-12 17:12] LABS: MICROSCOPIC INDICATED
[2019-05-12 17:14] LABS: ALANINE AMINOTRANSFERASE 17 U/L (12-78); ANION GAP 7 mmol/L (5-15); CALCIUM 9.3 mg/dL (8.5-10.1); CHLORIDE 111 mmol/L (98-107); CREATININE 1.19 mg/dL (0.55-1.02)
[2019-05-12 17:15] LABS: CULTURE INDICATED? YES
[2019-05-12 17:16] LABS: ALKALINE PHOSPHATASE 46 U/L (45-117); BILIRUBIN,TOTAL 0.6 mg/dL (0.2-1.0); TOTAL PROTEIN 8.1 g/dL (6.4-8.2)
[2019-05-12] MEDS ORDERED: PHENAZOPYRIDINE 200 MG TABLET ONE (17:23)
[2019-05-12 18:05] VITALS: BP 154/67
--- NOTE | 2019-05-12 18:06 | NUR ---
pt upright on gurnay awake & comfortable, responds approp to staff, NAD, comfort measures provided, call light within reach.
--- NOTE | 2019-05-12 18:11 | NUR ---
Patient given bus pass, discharge instructions and Rx, they have confirmed that they understand the instructions. Patient ambulatory with steady gait.
== END 2019-05-12 18:17 | disposition home or self-care (01) ==
LOC: ED 17:01
DX: N30.01 Acute cystitis with hematuria (principal); I10 Essential (primary) hypertension; K21.9 Gastro-esophageal reflux disease without esophagitis; E07.9 Disorder of thyroid, unspecified; E78.5 Hyperlipidemia, unspecified; M10.9 Gout, unspecified; Z90.710 Acquired absence of both cervix and uterus; Z87.891 Personal history of nicotine dependence
CPT/HCPCS: 36415; 80053; 81001; 83690; 85025; 87077; 87086; 87186; 99283

== ENCOUNTER 2019-05-28 12:14 | Day surgery (SDC) | payer MEDICARE ==
[~2019-05-28] VITALS: Ht 160 cm; Wt 52.9 kg
== END 2019-05-28 17:25 | disposition home or self-care (01) ==
LOC: OUT 12:14
PROVIDERS: ATTEND Urology
DX: C67.0 Malignant neoplasm of trigone of bladder (principal); C67.4 Malignant neoplasm of posterior wall of bladder; I10 Essential (primary) hypertension; E78.5 Hyperlipidemia, unspecified; E03.9 Hypothyroidism, unspecified; M10.9 Gout, unspecified; I69.398 Other sequelae of cerebral infarction; F03.90 Unspecified dementia, unspecified severity, without behavioral disturbance, psychotic disturbance, mood disturbance, and anxiety; Z79.890 Hormone replacement therapy; Z79.899 Other long term (current) drug therapy; Z88.5 Allergy status to narcotic agent; Z91.018 Allergy to other foods; Z87.891 Personal history of nicotine dependence
CPT/HCPCS: 52235; 88307; 93005; J0330; J0360; J0690; J1100; J2405; J2704; J3010; J7120

== ENCOUNTER 2019-05-31 15:27 | Emergency (ER) | payer MEDICARE ==
[~2019-05-31] VITALS: Ht 157.5 cm; Wt 50.0 kg
[~2019-05-31 15:27] MED LIST changes: -OMEP10CA4 PO; +OMEP10CA5 PO
[2019-05-31 15:31] VITALS: BP 154/83
[2019-05-31] MEDS ORDERED: ACETAMINOPHEN 325 MG TABLET PO ONE (16:00)
--- NOTE | 2019-05-31 16:22 | NUR ---
SURVEY DATA TECHNICIAN: PT TO ED ROOM 27 FROM LOBBY IN NAD AT THIS TIME
--- NOTE | 2019-05-31 16:32 | NUR ---
PT STATES SHE IS HURTING SINCE HER PROCEDURE LAST WEEK. PT STATES, "I MEAN THIS IS REAL PAIN" SHE DISCRIBES IT BLADDER PAIN. PT DENIES BLOODY URINE, PT WITH ROSS CATHETER IN PLACE. PT TO NIBP, CONT PULSE OX. ERMD IN TO EVAL PT
[2019-05-31] MEDS ORDERED: OXYcodone/APAP 5/325MG TABLET PO ONE (17:00)
[2019-05-31] MEDS ORDERED: CEFDINIR 300 MG CAPSULE ONE (17:27)
[2019-05-31] MEDS ORDERED: OXYcodone/APAP 5/325MG TABLET ONE (17:27)
[2019-05-31] MEDS ORDERED: PHENAZOPYRIDINE 200 MG TABLET ONE (17:27)
[2019-05-31] MEDS ORDERED: PHENAZOPYRIDINE 200 MG TABLET PO ONE (17:30)
[2019-05-31] MEDS ORDERED: CEFDINIR 300 MG CAPSULE PO ONE (17:30)
--- NOTE | 2019-05-31 17:45 | NUR ---
UA COLLECTED AND SENT. BLADDER SCAN COMPLETED 19ML. PT TO D/C HOME.
[2019-05-31 17:59] LABS: MICROSCOPIC INDICATED
--- NOTE | 2019-05-31 18:07 | NUR ---
Patient/Caregiver given discharge instructions and they have confirmed that they understand the instructions. Patient ambulatory with steady gait.
[2019-05-31 18:23] LABS: CULTURE INDICATED? YES
== END 2019-05-31 18:09 | disposition home or self-care (01) ==
LOC: ED 17:28
DX: N39.0 Urinary tract infection, site not specified (principal)
CPT/HCPCS: 81001; 87086; 99284